=== PATIENT | female | born 1950 | race Caucasian/White ===

== ENCOUNTER 2021-04-05 06:37 | Day surgery (SDC) | payer MEDICARE, BC ==
[2021-04-05] MEDS ORDERED: Lidocaine 1% PF 2 ML SDV INJECT ONE (06:38)
[2021-04-05] MEDS ORDERED: Propofol 200 MG/20 ML SDV IV ONE (06:38)
[2021-04-05] MEDS ORDERED: Sodium Chloride 0.9% 10 ML Syringe FLUSH PRN (06:45)
[2021-04-05] MEDS: Lactated Ringers 1,000 ML IV SCH (07:08)
[2021-04-05 14:44] VITALS: BP 124/78; PULSE 65
== END 2021-04-05 08:50 | disposition home or self-care (01) ==
LOC: FB.SDS 06:37
PROVIDERS: ATTEND Surgery
DX: K57.30 Diverticulosis of large intestine without perforation or abscess without bleeding (principal); E78.5 Hyperlipidemia, unspecified; I10 Essential (primary) hypertension; E66.9 Obesity, unspecified; Z90.49 Acquired absence of other specified parts of digestive tract; Z79.899 Other long term (current) drug therapy; Z98.890 Other specified postprocedural states; Z68.36 Body mass index [BMI] 36.0-36.9, adult
CPT/HCPCS: 00811-QZ; J2704; J7120